=== PATIENT | female | born 1980 | race Caucasian/White ===

== ENCOUNTER 2018-09-12 13:43 | Emergency (ER) | payer BC, OTHER ==
[2018-09-12 15:13] VITALS: BP 109/73
--- NOTE | 2018-09-12 15:38 | UC ---
Skin Complaint HPI - HPI Summary HPI Summary: 38-year-old female presents with onset of an erythematous, mildly pruritic rash to her left mid back 2 days ago. States approximately 10 days ago she did find a dictated, not engorged tick in her clothing but is unaware of any specific bite. States she has noticed some fatigue and 3 days last week she did note a bad headache. Patient is concerned for possible Lyme disease. Denies fever, flulike symptoms, myalgias, joint pain or swelling. - History of Current Complaint Chief Complaint: UCSkin Time Seen by Provider: 09/12/18 15:14 Stated Complaint: TICK BITE Hx Obtained From: Patient Hx Last Menstrual Period: iud Pain Intensity: 0 - Allergy/Home Medications Allergies/Adverse Reactions: Allergies Allergy/AdvReac Type Severity Reaction Status Date / Time No Known Allergies Allergy Verified 09/12/18 15:13 Home Medications: Home Medications Cabergoline 0.5 mg PO 09/12/18 [History] PMH/Surg Hx/FS Hx/Imm Hx Previously Healthy: Yes - Denies significant PMH - Surgical History Surgical History: Yes Surgery Procedure, Year, and Place: orif to lt elbow, t&a - Family History Known Family History: Positive: Non-Contributory - Social History Occupation: Employed Full-time Lives: Alone Alcohol Use: Weekly Substance Use Type: None Smoking Status (MU): Never Smoked Tobacco Review of Systems All Other Systems Reviewed And Are Negative: Yes Constitutional: Negative: Fever, Chills Skin: Positive: Other - See HPI Respiratory: Positive: Negative Cardiovascular: Positive: Negative Gastrointestinal: Positive: Negative Genitourinary: Positive: Negative Musculoskeletal: Negative: Arthralgia, Myalgia Neurological: Positive: Headache Is Patient Immunocompromised?: No Physical Exam - Summary Physical Exam Summary: GENERAL APPEARANCE: Well developed, well nourished, alert and cooperative, and appears to be in no acute distress. CARDIAC: Normal S1 and S2. No S3, S4 or murmurs. Rhythm is regular. There is no peripheral edema, cyanosis or pallor. Extremities are warm and well perfused. Capillary refill is less than 2 seconds. Peripheral pulses intact. LUNGS: Clear to auscultation without rales, rhonchi, wheezing or diminished breath sounds. ABDOMEN: Positive bowel sounds. Soft, nondistended, nontender. No guarding or rebound. No masses or hepatosplenomegally. MUSKULOSKELETAL: ROM intact to all extremities. No joint erythema or tenderness. Normal muscular development. Normal gait. SKIN: Skin normal color, texture and turgor. 2.5 cm x 4 cm oval-shaped area of erythema without induration or fluctuance noted to the left thoracic back at the bra line. Mildly warm to touch. Triage Information Reviewed: Yes Vital Signs: Initial Vital Signs Temp 98.8 F 09/12/18 15:08 Pulse 66 09/12/18 15:08 Resp 18 09/12/18 15:08 BP 109/73 09/12/18 15:08 Pulse Ox 100 09/12/18 15:08 Vital Signs Reviewed: Yes Course/Dx - Course Course Of Treatment: 38-year-old female presents with onset of an erythematous, mildly pruritic rash to her left mid back 2 days ago. States approximately 10 days ago she did find a dictated, not engorged tick in her clothing but is unaware of any specific bite. States she has noticed some fatigue and 3 days last week she did note a bad headache. Denies fever, flulike symptoms, myalgias, joint pain or swelling. Afebrile. Vital signs stable. Patient had a 2.5 cm x 4 cm oval- shaped area of erythema without induration or fluctuance noted to the left thoracic back at the bra line. Mildly warm to touch. Exam otherwise unremarkable. Discussed with the patient that the lesion did not appear to be the typical bull's-eye rash however with her recently finding an engorged tick within her clothing within the timeframe we would expect to see a Lyme rash I'm going to treat her as if this is the case. I suspect this may be a localized infection of the skin however the doxycycline should cover for this as well. She is to take doxycycline 100 mg twice a day 2 weeks. She is to return here or follow up with primary care if symptoms are not improving. Anticipatory guidance and warning symptoms are reviewed with the patient. Verbalizes understanding and agrees with plan of care. - Differential Diagnoses - Skin Complaint Differential Diagnoses: Cellulitis, Local Allergic Reaction, Tick Born Illness - Diagnoses Provider Diagnosis: Lyme disease Discharge - Sign-Out/Discharge Documenting (check all that apply): Patient Departure All imaging exams completed and their final reports reviewed: No Studies - Discharge Plan Condition: Stable Disposition: HOME Prescriptions: Doxycycline Hyclate 100 mg PO BID #28 tablet Patient Education Materials: Lyme Disease (ED) Referrals: No Primary Care Phys,NOPCP [Primary Care Provider] - [facility] [Outside] Additional Instructions: The spot on your back is not the typical bullseye rash that we see in early Lyme disease however with you having found an engorged tick in your clothing about 10 days ago we will treat as if this is Lyme. Start doxycycline 100 mg twice a day for 2 weeks. Do not drink mild, eat milk products, or take supplements containing calcium for at least 2 hours before or after taking this medication as it can affect the absorption of the drug. Avoid exposure to the sun as this antibiotic will make you burn more easily. If you must be in the sun take appropriate precautions including sunscreen, hats, and longsleeves. There is no benefit of blood testing for Lyme disease at this time because you will not have a positive blood test until approximately two to six weeks after the tick bite. To try to avoid getting bitten by a tick, you can: * Wear shoes, long-sleeved shirts, and long pants when you go outside. Keep ticks away from your skin by tucking your pants into your socks. * Wear light colors so you can spot any ticks that get on your clothes. * Wear bug spray or cream that contains DEET. (Do not use DEET on babies younger than 2 months.) On your clothes and gear, you can use bug repellents that have a chemical called "permethrin." * Shower within 2 hours of being outdoors if you think you have been in an area where there are ticks. * Put dry clothes briefly (for about 4 minutes) in a dryer after being outdoors. * Check your clothes and body for ticks after being outdoors. Be sure to check your scalp, waist, armpits, groin, and backs of your knees. Check your children , too. I have given you the contact information for the [facility] physician referral service if you need assistance with establishing with a primary care provider. Seek immediate medical attention if you develop fever greater than 100.5 F, the redness continues to spread, you have increased swelling of the area, or any worsening of symptoms. - Billing Disposition and Condition Condition: STABLE Disposition: Home - Attestation Statements Provider Attestation: Per institutional requirements, I have reviewed the chart, however, I was not consulted specifically or made aware of this patient by the midlevel provider. I did not personally evaluate, interact with , or disposition this patient.
== END 2018-09-12 15:35 | disposition home or self-care (01) ==
LOC: UCEAST 13:43
DX: A69.20 Lyme disease, unspecified (principal)
CPT/HCPCS: 99202; G0463

== ENCOUNTER 2019-03-15 09:38 | Emergency (ER) | payer BC ==
--- NOTE | 2019-03-15 10:52 | UC ---
Throat Pain/Nasal Wale HPI - HPI Summary HPI Summary: 39 yo female presents with sore throat. She tells me that over the last 2 days has had a sore throat that has gotten progressively worse. Today is very painful to swallow. Has been taking tylenol with minimal relief. Mentions that she had a T&A about 3 years ago due to recurrent strep and "staph" infections in her throat. She is able to eat, drink, and tolerate po but does have significant pain. - History of Current Complaint Stated Complaint: SORE THROAT Hx Obtained From: Patient Hx Last Menstrual Period: iud Onset/Duration: Sudden Onset Severity: Severe Pain Intensity: 9 Pain Scale Used: 0-10 Numeric - Allergies/Home Medications Allergies/Adverse Reactions: Allergies Allergy/AdvReac Type Severity Reaction Status Date / Time No Known Allergies Allergy Verified 03/15/19 10:53 PMH/Surg Hx/FS Hx/Imm Hx - Additional Past Medical History Additional PMH: None - Surgical History Surgical History: Yes Surgery Procedure, Year, and Place: orif to lt elbow, t&a - Family History Known Family History: Positive: Non-Contributory - Social History Lives: With Family Alcohol Use: Weekly Substance Use Type: None Smoking Status (MU): Never Smoked Tobacco Review of Systems All Other Systems Reviewed And Are Negative: No Constitutional: Positive: Negative Skin: Positive: Negative Eyes: Positive: Negative ENT: Positive: Sore Throat Respiratory: Positive: Negative Cardiovascular: Positive: Negative Gastrointestinal: Positive: Negative Physical Exam - Summary Physical Exam Summary: GENERAL: NAD. WDWN. No pain distress. SKIN: No rashes, sores, lesions, or open wounds. HEENT: Head: AT/NC Eyes: Conjunctiva clear without inflammation or discharge. Ears: Hearing grossly normal. TMs intact, no bulging, erythema, or edema. Nose: Nasal mucosa pink and moist. NTTP maxillary and frontal sinus. Throat: Posterior oropharynx mild erythema and soft palate with moderate white/yellow exudates at previous site of adenoids. Uvula midline. No hoarse voice or muffled voice. NECK: Supple. Mildly ttp tonsillar LAD CHEST: CTAB. No r/r/w. No accessory muscle use. Breathing comfortably and in no distress. CV: RRR.. Pulses intact. Cap refill <2seconds NEURO: Alert. PSYCH: Age appropriate behavior. Triage Information Reviewed: Yes Vital Signs: Vital Signs: Temp Pulse Resp BP Pulse Ox 99 F 100 20 110/77 100 03/15/19 10:50 03/15/19 10:50 03/15/19 10:50 03/15/19 10:50 03/15/19 10:50 Laboratory Tests 03/15/19 11:01 Group A Strep Rapid Positive A Vital Signs Reviewed: Yes Throat Pain/Nasal Course/Dx - Course Course Of Treatment: POC strep positive. - Differential Dx/Diagnosis Provider Diagnosis: Strep throat Discharge ED - Sign-Out/Discharge Documenting (check all that apply): Patient Departure All imaging exams completed and their final reports reviewed: No Studies - Discharge Plan Condition: Stable Disposition: HOME Prescriptions: Amoxicillin/Clavulanate TAB* [Augmentin TAB 875*] 875 mg PO BID #14 tab Patient Education Materials: Strep Throat (ED) Referrals: Tory Mccarty MD [Primary Care Provider] - Additional Instructions: If you develop a fever, shortness of breath, chest pain, new or worsening symptoms - please call your PCP or go to the ED immediately. - Billing Disposition and Condition Condition: STABLE Disposition: Home
[2019-03-15 10:53] VITALS: BP 110/77
== END 2019-03-15 11:20 | disposition home or self-care (01) ==
LOC: UCEAST 09:38
DX: J02.0 Streptococcal pharyngitis (principal)
CPT/HCPCS: 87651; 99212; G0463

== ENCOUNTER 2019-06-01 09:49 | Emergency (ER) | payer BC, OTHER ==
[2019-06-01 10:48] VITALS: BP 105/73
--- NOTE | 2019-06-01 10:53 | UC ---
Throat Pain/Nasal Wale HPI - HPI Summary HPI Summary: 39 yo female presents with sore throat. She tells me that she has a hx of strep throat and had her tonsils removed years ago due to this. Yesterday she developed a sore throat, headache, and subjective fever. Today sore throat is worse. She has not taken anything OTC for her symptoms. She is eating, drinking , and tolerating po. Denies sinus symptoms, cough, rash, abdominal pain, n/v. - History of Current Complaint Chief Complaint: UCGeneralIllness Stated Complaint: SORE THROAT Time Seen by Provider: 06/01/19 10:53 Hx Obtained From: Patient Hx Last Menstrual Period: 05/15/19 Onset/Duration: Sudden Onset Severity: Moderate Pain Intensity: 7 Pain Scale Used: 0-10 Numeric - Allergies/Home Medications Allergies/Adverse Reactions: Allergies Allergy/AdvReac Type Severity Reaction Status Date / Time No Known Allergies Allergy Verified 03/15/19 10:53 Home Medications: Home Medications Cabergoline 0.5 mg PO 09/12/18 [History] Doxycycline Hyclate 100 mg PO BID #28 tablet 09/12/18 [Rx] Amoxicillin/Clavulanate TAB* [Augmentin TAB 875*] 875 mg PO BID #14 tab [Rx] Amoxicillin PO (*) [Amoxicillin 500 MG CAP*] 500 mg PO Q12H #20 cap 06/01/19 [Rx ] PMH/Surg Hx/FS Hx/Imm Hx - Additional Past Medical History Additional PMH: None - Surgical History Surgical History: Yes Surgery Procedure, Year, and Place: orif to lt elbow, t&a - Family History Known Family History: Positive: Non-Contributory - Social History Lives: With Family Alcohol Use: Weekly Substance Use Type: None Smoking Status (MU): Never Smoked Tobacco Review of Systems All Other Systems Reviewed And Are Negative: No Constitutional: Positive: Fever Skin: Positive: Negative Eyes: Positive: Negative ENT: Positive: Sore Throat Respiratory: Positive: Negative Cardiovascular: Positive: Negative Gastrointestinal: Positive: Negative Neurovascular: Positive: Negative Neurological/Mental Status: Positive: Negative Psychological: Positive: Negative Physical Exam - Summary Physical Exam Summary: GENERAL: NAD. WDWN. No pain distress. SKIN: No rashes, sores, lesions, or open wounds. HEENT: Head: AT/NC Eyes: Conjunctiva clear without inflammation or discharge. Ears: Hearing grossly normal. TMs intact, no bulging, erythema, or edema. Nose: Nasal mucosa pink and moist. NTTP maxillary and frontal sinus. Throat: Posterior oropharynx mild erythema and 2+ tonsillar enlargement. No exudates. Uvula midline. No hoarse voice or muffled voice. NECK: Supple. Nontender. No lymphadenopathy. CHEST: CTAB. No r/r/w. No accessory muscle use. Breathing comfortably and in no distress. CV: RRR. Pulses intact. Cap refill <2seconds NEURO: Alert. PSYCH: Age appropriate behavior. Triage Information Reviewed: Yes Vital Signs: Initial Vital Signs Temp 98.2 F 06/01/19 10:44 Pulse 91 06/01/19 10:44 Resp 17 06/01/19 10:44 BP 105/73 06/01/19 10:44 Pulse Ox 100 06/01/19 10:44 Laboratory Tests 06/01/19 10:53 Group A Strep Rapid Positive H Vital Signs Reviewed: Yes Throat Pain/Nasal Course/Dx - Course Course Of Treatment: POC strep positive. Rx for amoxicillin - Differential Dx/Diagnosis Provider Diagnosis: Strep throat Discharge ED - Sign-Out/Discharge Documenting (check all that apply): Patient Departure All imaging exams completed and their final reports reviewed: No Studies - Discharge Plan Condition: Stable Disposition: HOME Prescriptions: Amoxicillin PO (*) [Amoxicillin 500 MG CAP*] 500 mg PO Q12H #20 cap Patient Education Materials: Strep Throat (ED) Referrals: Tory Mccarty MD [Primary Care Provider] - Bronson Shipman MD [Medical Doctor] - As Soon As Possible Additional Instructions: If you develop a fever, shortness of breath, chest pain, new or worsening symptoms - please call your PCP or go to the ED immediately. I recommend that you call ENT at the number below to schedule an appointment regarding your reoccurring strep throats - Billing Disposition and Condition Condition: STABLE Disposition: Home
== END 2019-06-01 11:18 | disposition home or self-care (01) ==
LOC: UCEAST 09:49
DX: J02.0 Streptococcal pharyngitis (principal); R51 Headache
CPT/HCPCS: 87651; 99212; G0463